=== PATIENT | female | born 1980 | race Caucasian/White ===

== ENCOUNTER 2021-09-04 13:12 | Outpatient (CLI) | payer BC, SELFPAY ==
--- NOTE | ~2021-09-04 | MMUS_ITS ---
EXAMINATION: MM diagnostic howard LT w heena, US breast LT limited HISTORY: Follow-up left breast mass TECHNIQUE: Additional 3-D tomosynthesis images of the left breast were performed and synthetic 2-D im ages were generated. CAD analysis was submitted and interpreted. High resolution Limited left breast ultrasound was performed. COMPARISON: 08/08/2021 BREAST PARENCHYMAL COMPOSITION: Breast composed of scattered areas of fibroglandular density. FINDINGS: MAMMOGRAPHIC FINDINGS: There is a subtle hypodense mass in the upper outer quadrant of the left breast which is obscured by fibroglandular tissue, anterior depth. There are no suspicious calcifications or architectural distor tion. ULTRASOUND: Limited left breast ultrasound: At 12:00, 4 cm from the nipple, there is a 3 mm cyst. ] At 9 O'clock near the nipple there is an oval hypoechoic 5 mm mass with circumscribed margins, parall el orientation, no posterior features or internal vascularity, likely benign. At 2:00, 2 cm from the nipple there is a 5 mm cyst. At 2:00 near the nipple is an oval hypoechoic mass with parallel orienta tion measuring 5 mm, no significant posterior features or internal vascularity. IMPRESSION: 1. Probable benign left breast masses at 9:00 and 2:00. 2. Recommend 6 month follow-up left breast ultrasound BI-RADS category 3, probably benign findings. Reviewed, dictated and finalized at location [facility]. OPERATOR IMPRESSION: 1. Probable benign left breast masses at 9:00 and 2:00. 2. Recommend 6 month follow-up left breast ultrasound BI-RADS category 3, probably benign findings.
== END 2021-09-04 13:13 | disposition home or self-care (01) ==
LOC: ANHIMG 13:17
PROVIDERS: PCP Family Medicine; Visit Provider Family Medicine
DX: R92.8 Other abnormal and inconclusive findings on diagnostic imaging of breast (principal); N60.02 Solitary cyst of left breast; N63.12 Unspecified lump in the right breast, upper inner quadrant; N63.15 Unspecified lump in the right breast, overlapping quadrants
CPT/HCPCS: 76642; 77061; 77065; G0279

== ENCOUNTER 2022-06-25 12:37 | Outpatient (CLI) | payer BC, SELFPAY ==
--- NOTE | ~2022-06-25 | US_ITS ---
US breast LT limited DATE: 06/25/2022 13:29 INDICATION: Probable benign left breast masses reported at 9:00 and 2:00 on 09/04/2021 Limited left br east ultrasound examination TECHNIQUE: Real-time imaging targeted to 2:00 and 9:00 areas near nipple location a prior COMPARISON: None FINDINGS: No suspicious mass or shadowing is detected. IMPRESSION: BI-RADS Category 1: Negative INDICATION: Routine mammographic screening in August 2022 Reviewed, dictated and finalized at [facility]. Reviewed, dictated and finalized at location [facility].
== END 2022-06-25 12:38 | disposition home or self-care (01) ==
PROVIDERS: PCP Family Medicine; Visit Provider Family Medicine
DX: R92.8 Other abnormal and inconclusive findings on diagnostic imaging of breast (principal)
CPT/HCPCS: 76642